=== PATIENT | male | born 1995 | race Caucasian/White ===

== ENCOUNTER 2016-06-10 20:53 | Emergency (ER) | payer OTHER ==
--- NOTE | 2016-06-10 21:31 | ED CLINICAL REPORT ---
Clinical Report - Physicians/Mid Levels [facility] [address] [place] [address] 06/10/2016 20:55 Patient: CLARKE GRAYSON Time Seen: 21:00. Arrived- By private vehicle. Historian- patient. HISTORY OF PRESENT ILLNESS Chief Complaint: EYE PAIN and FOREIGN BODY. This started yesterday, involves the right eye, is characterized as moderate in severity and has been constant and is still present. The patient sustained injury. This occurred at home. He has metallic foreign material in the eye from grinding. Eye pain, discomfort, redness and irritation. REVIEW OF SYSTEMS No fever, sore throat or cough. PAST HISTORY No history of prior eye injury, diabetes mellitus or glaucoma. He does not wear contact lenses. Mental illness. Tetanus immunization status is up-to-date. Surgeries: No history of previous surgery. SOCIAL HISTORY Smoker- current status unknown. Occasional alcohol use. History of drug use quit marijuana 2 months ago. ADDITIONAL NOTES The nursing notes have been reviewed. PHYSICAL EXAM Vital Signs: 06/10/2016 21:01 BP: 137/71. HR: 102. RR: 16. O2 saturation: 98%. Temp: 98.5 F. Pain level now: 5/10. Appearance: Alert. Oriented X3. Patient in moderate distress. HEENT: Nose normal. Head appears normal to external inspection. Eyes: Visual acuity noted- see nurse's notes. Right eyelid everted for examination. Right cornea examined with fluorescein stain. Eyelids appear normal to inspection. Pupils equal, round and reactive to light. Accommodation normal. EOMs intact. Periorbital areas appear normal to inspection. Right eye examined with slit lamp. Anterior chambers clear. Anterior chambers of normal depth. Neg Cyndie's sign. Rt Eye: Injected conjunctiva. A single metallic corneal foreign body is present medially. Single small circular shaped area of fluorescein dye uptake on the cornea medially. Lt Eye: Left eye exam normal. Neck: Neck supple. Normal inspection. CVS: Normal heart rate and rhythm. Heart sounds normal. Respiratory: No respiratory distress. Breath sounds normal. Neuro: Oriented X 3. Mood/affect normal. No motor deficit. PROGRESS AND PROCEDURES Removal of Eye Foreign Body: After topical anesthesia with 3 drops of Proparacaine, a single foreign body was successfully removed from the right cornea using the slit lamp (with magnification) and magnification lenses, a moistened sterile cotton swab and a sterile rotating selwyn and lid eversion, fluorescein and a Wood's lamp. There were no complications encountered. The patient was cooperative. Course of Care: Alcaine gtt right eye. Punctate fb removed without difficulty. No evident residual rust ring. No deep globe penetration - superficial corneal involvement only. Patient/family counseled. Old ED records reviewed. Disposition: Discharged. Condition: stable and improved. CLINICAL IMPRESSION Removed corneal foreign body right eye. No rust ring. INSTRUCTIONS Rest. Do not work for two days. Drink plenty of fluids. Do not smoke. Seek medical help to quit smoking. Warnings: Further evaluation is necessary. It is very important to follow up with a physician. CONTROLLED SUBSTANCE WARNINGS. GENERAL WARNINGS: Return or contact your physician immediately if your condition worsens or changes unexpectedly, if not improving as expected, or if other problems arise. Prescription Medications: Hydrocodone/APAP 5mg / 325mg: take 1-2 orally every 8 hours as needed for pain. Dispense ten (10). No refill. Sulfacetamide ophthalmic solution 10% : instill 2 drops into the affected eye every 2 hours while awake for 3 days. Dispense ten (10) mL. No refill. OTC Medications: Acetaminophen (available over the counter): take according to label instructions. Motrin (available over the counter): take according to label instructions. Follow-up with: Marcus Sewell MD, Ophthalmology, , [facility], [address] [place] [address]; Comfort Oh MD, Ophthalmology, [facility], [address] [place] [address] - [address] [place] [address] Follow up Sunday if not better. Follow-up with: Lj Pederson MD, [facility], , [address] [facility] [id number] [phone] Follow up in two days if not better. (Electronically signed by Sravan Watson DO 06/11/2016 2:23)
--- NOTE | 2016-06-10 21:31 | ED ORDER SUMMARY ---
..... Patient: CLARKE GRAYSON OrderSheet [facility] VisitID: [id number] [address] [place] [address] 20y, M Registration Date/Time: 06/10/2016 ORDER SHEET Weight: 58.9 kg (stated) Allergies: No Known Drug Allergy GENERAL ORDERS: MEDICATION ORDERS: Proparacaine Eye Drops (Solution 0.5 %) 2 drops (place at bedside) (21:11 06/10/2016 JQuivey R.N. per protocol) (21:12 JQuivey R.N.) Fluorescein Eye Strips 1 strips (place at bedside) (21:12 06/10/2016 JQuivey R.N. per protocol) (21:13 JQuivey R.N.) IV FLUIDS: ORDER SHEET NOTES: [Electronically signed by Slim Helton R.N. (21:40 06/10/2016)] [Electronically signed by Sravan Watson DO (02:23 06/11/2016)] [Electronically locked/signed by Slim Helton R.N. (21:40 06/10/2016)]
--- NOTE | 2016-06-10 21:31 | ED ORDER SUMMARY ---
..... Patient: CLARKE GRAYSON OrderSheet [facility] VisitID: [id number] [address] [place] [address] 20y, M Registration Date/Time: 06/10/2016 ORDER SHEET Weight: 58.9 kg (stated) Allergies: No Known Drug Allergy GENERAL ORDERS: MEDICATION ORDERS: Proparacaine Eye Drops (Solution 0.5 %) 2 drops (place at bedside) (21:11 06/10/2016 JQuivey R.N. per protocol) (21:12 JQuivey R.N.) Fluorescein Eye Strips 1 strips (place at bedside) (21:12 06/10/2016 JQuivey R.N. per protocol) (21:13 JQuivey R.N.) IV FLUIDS: ORDER SHEET NOTES: [Electronically signed by Slim Helton R.N. (21:40 06/10/2016)] [Electronically signed by Sarvan Watson DO (02:23 06/11/2016)] [Electronically locked/signed by Slim Helton R.N. (21:40 06/10/2016)]
--- NOTE | 2016-06-10 21:31 | ED NURSING NOTES ---
Clinical Report - Nurses [facility] [address] [place] [address] 06/10/2016 20:55 Patient: CLARKE GRAYSON TRIAGE Triage time 21:01. Acuity: LEVEL 4. Chief Complaint: REDNESS, PAIN and FOREIGN BODY TO RIGHT EYE. 21:04. Alert. SEPSIS SCREEN: Sepsis Screen. Negative (no infection suspected/documented). VISUAL ACUITY: Visual acuity performed without corrective lenses: left eye 20/25; right eye 20/40 minus one letter; both eyes 20/25 minus two letters. --21:05 Slim Helton R.N. 21:01 06/10/16. BP: 137/71. HR: 102. RR: 16. O2 saturation: 98%. Temp: 98.5 F (oral). Pain level now: 5/10. --21:05 Slim Helton R.N. Weight: 58.9 kg stated. Height/Length: 65 inches Per Patient. BMI: 21.6. Growth Chart Percentile: Weight: 11.6%. Height/Length: 5%. --21:02 Slim Helton R.N. Medications None. --21:03 Slim Helton R.N. Allergies No Known Drug Allergy. --21:03 Slim Helton R.N. Medication/allergy information source: the patient. --21:05 Slim Helton R.N. History Arrived by private vehicle. Historian: patient. Unaccompanied. Primary physician (Bg). This started yesterday. He sustained injury. Mechanism- grinding metal. Treatment RELIABILITY TECHNOLOGIST: None. PAST MEDICAL HX: Immunizations: up-to-date. SOCIAL HX: Current every day heavy tobacco smoker- more than 2 packs per day. Occasional alcohol use. History of occasional drug use: marijuana. (quit 2 months ago). No infectious disease exposure. ABUSE ASSESSMENT: No report of abuse. FALL RISK ASSESSMENT: Fall risk assessment completed. No fall risk identified. NUTRITIONAL RISK ASSESSMENT: The nutritional risk assessment revealed no deficiencies. FUNCTIONAL ASSESSMENT: Functional assessment: no impairments noted. LEARNING NEEDS ASSESSMENT: The learning needs assessment revealed no barriers. SKIN INTEGRITY ASSESSMENT: Skin integrity risk assessment completed. No skin integrity risk identified. --21:05 Slim Helton R.N. PROBLEMS: Mental Illness. --21:03 Slim Helton R.N. ADDITIONAL SURGERIES: no known surgeries. Interventions ID band on patient. To treatment room. --21:05 Slim Helton R.N. PHYSICAL ASSESSMENT 21:06. Ambulatory to room. GENERAL / NEURO / PSYCH: Alert. HEENT: No facial asymmetry noted. Conjunctival findings present: redness of the right conjunctiva. RESPIRATORY: Respirations not labored. SKIN: Skin is warm and dry. Normal skin turgor. --21:06 Slim Helton R.N. NURSING PROGRESS NOTES 21:06. Two patient identifiers checked. Call light placed in reach. Bed placed in lowest position. Brakes of bed on. Patient ready for evaluation- chart flagged. --21:06 Slim Helton R.N. 21:12 06/10/2016 Proparacaine Eye Drops 2 drop given. (placed at bedside). --21:12 Slim Helton R.N. 21:13 06/10/2016 FLUORESCEIN Opth soln 1 Strip given. Given in the right eye. (placed at bedside). --21:13 Slim Helton R.N. 21:37. The patient is calm and resting quietly. GENERAL / NEURO / PSYCH: Alert. Oriented X 4. RESPIRATORY: No respiratory distress. SKIN: Skin color within normal limits. Skin is warm and dry. --21:39 Slim Helton R.N. DISPOSITION / DISCHARGE Departure time: 21:40. Condition at departure: stable. No learning barriers present. Discharge instructions provided and reviewed with the patient. Reviewed medication(s) side effects, precautions, dosing and course information. Prescription(s) given to the patient. Patient verbalized understanding. Written instructions provided in Slovak. The patient was discharged home and unaccompanied at time of discharge. He left the Emergency Department ambulatory and via private vehicle. Patient driving. FALL RISK ASSESSMENT: Fall risk assessment completed. No fall risk identified. --21:40 Quivey, Slim, R.N. Locked/Released at 06/10/2016 21:40 by Slim Helton R.N.
--- NOTE | 2016-06-10 21:31 | ED NURSING NOTES ---
Clinical Report - Nurses [facility] [address] [place] [address] 06/10/2016 20:55 Patient: CLARKE GRAYSON TRIAGE Triage time 21:01. Acuity: LEVEL 4. Chief Complaint: REDNESS, PAIN and FOREIGN BODY TO RIGHT EYE. 21:04. Alert. SEPSIS SCREEN: Sepsis Screen. Negative (no infection suspected/documented). VISUAL ACUITY: Visual acuity performed without corrective lenses: left eye 20/25; right eye 20/40 minus one letter; both eyes 20/25 minus two letters. --21:05 Slim Helton R.N. 21:01 06/10/16. BP: 137/71. HR: 102. RR: 16. O2 saturation: 98%. Temp: 98.5 F (oral). Pain level now: 5/10. --21:05 Slim Helton R.N. Weight: 58.9 kg stated. Height/Length: 65 inches Per Patient. BMI: 21.6. Growth Chart Percentile: Weight: 11.6%. Height/Length: 5%. --21:02 Slim Helton R.N. Medications None. --21:03 Slim Helton R.N. Allergies No Known Drug Allergy. --21:03 Slim Helton R.N. Medication/allergy information source: the patient. --21:05 Slim Helton R.N. History Arrived by private vehicle. Historian: patient. Unaccompanied. Primary physician (Bg). This started yesterday. He sustained injury. Mechanism- grinding metal. Treatment DIRECTOR AND PROFESSOR: None. PAST MEDICAL HX: Immunizations: up-to-date. SOCIAL HX: Current every day heavy tobacco smoker- more than 2 packs per day. Occasional alcohol use. History of occasional drug use: marijuana. (quit 2 months ago). No infectious disease exposure. ABUSE ASSESSMENT: No report of abuse. FALL RISK ASSESSMENT: Fall risk assessment completed. No fall risk identified. NUTRITIONAL RISK ASSESSMENT: The nutritional risk assessment revealed no deficiencies. FUNCTIONAL ASSESSMENT: Functional assessment: no impairments noted. LEARNING NEEDS ASSESSMENT: The learning needs assessment revealed no barriers. SKIN INTEGRITY ASSESSMENT: Skin integrity risk assessment completed. No skin integrity risk identified. --21:05 Slim Helton R.N. PROBLEMS: Mental Illness. --21:03 Slim Helton R.N. ADDITIONAL SURGERIES: no known surgeries. Interventions ID band on patient. To treatment room. --21:05 Slim Helton R.N. PHYSICAL ASSESSMENT 21:06. Ambulatory to room. GENERAL / NEURO / PSYCH: Alert. HEENT: No facial asymmetry noted. Conjunctival findings present: redness of the right conjunctiva. RESPIRATORY: Respirations not labored. SKIN: Skin is warm and dry. Normal skin turgor. --21:06 Slim Helton R.N. NURSING PROGRESS NOTES 21:06. Two patient identifiers checked. Call light placed in reach. Bed placed in lowest position. Brakes of bed on. Patient ready for evaluation- chart flagged. --21:06 Slim Helton R.N. 21:12 06/10/2016 Proparacaine Eye Drops 2 drop given. (placed at bedside). --21:12 Slim Helton R.N. 21:13 06/10/2016 FLUORESCEIN Opth soln 1 Strip given. Given in the right eye. (placed at bedside). --21:13 Slim Helton R.N. 21:37. The patient is calm and resting quietly. GENERAL / NEURO / PSYCH: Alert. Oriented X 4. RESPIRATORY: No respiratory distress. SKIN: Skin color within normal limits. Skin is warm and dry. --21:39 Slim Helton R.N. DISPOSITION / DISCHARGE Departure time: 21:40. Condition at departure: stable. No learning barriers present. Discharge instructions provided and reviewed with the patient. Reviewed medication(s) side effects, precautions, dosing and course information. Prescription(s) given to the patient. Patient verbalized understanding. Written instructions provided in Uzbek. The patient was discharged home and unaccompanied at time of discharge. He left the Emergency Department ambulatory and via private vehicle. Patient driving. FALL RISK ASSESSMENT: Fall risk assessment completed. No fall risk identified. --21:40 Quivey, Slim, R.N. Locked/Released at 06/10/2016 21:40 by Slim Helton R.N.
--- NOTE | 2016-06-10 21:31 | ED CLINICAL REPORT ---
Clinical Report - Physicians/Mid Levels [facility] [address] [place] [address] 06/10/2016 20:55 Patient: CLARKE GRAYSON Time Seen: 21:00. Arrived- By private vehicle. Historian- patient. HISTORY OF PRESENT ILLNESS Chief Complaint: EYE PAIN and FOREIGN BODY. This started yesterday, involves the right eye, is characterized as moderate in severity and has been constant and is still present. The patient sustained injury. This occurred at home. He has metallic foreign material in the eye from grinding. Eye pain, discomfort, redness and irritation. REVIEW OF SYSTEMS No fever, sore throat or cough. PAST HISTORY No history of prior eye injury, diabetes mellitus or glaucoma. He does not wear contact lenses. Mental illness. Tetanus immunization status is up-to-date. Surgeries: No history of previous surgery. SOCIAL HISTORY Smoker- current status unknown. Occasional alcohol use. History of drug use quit marijuana 2 months ago. ADDITIONAL NOTES The nursing notes have been reviewed. PHYSICAL EXAM Vital Signs: 06/10/2016 21:01 BP: 137/71. HR: 102. RR: 16. O2 saturation: 98%. Temp: 98.5 F. Pain level now: 5/10. Appearance: Alert. Oriented X3. Patient in moderate distress. HEENT: Nose normal. Head appears normal to external inspection. Eyes: Visual acuity noted- see nurse's notes. Right eyelid everted for examination. Right cornea examined with fluorescein stain. Eyelids appear normal to inspection. Pupils equal, round and reactive to light. Accommodation normal. EOMs intact. Periorbital areas appear normal to inspection. Right eye examined with slit lamp. Anterior chambers clear. Anterior chambers of normal depth. Neg Cyndie's sign. Rt Eye: Injected conjunctiva. A single metallic corneal foreign body is present medially. Single small circular shaped area of fluorescein dye uptake on the cornea medially. Lt Eye: Left eye exam normal. Neck: Neck supple. Normal inspection. CVS: Normal heart rate and rhythm. Heart sounds normal. Respiratory: No respiratory distress. Breath sounds normal. Neuro: Oriented X 3. Mood/affect normal. No motor deficit. PROGRESS AND PROCEDURES Removal of Eye Foreign Body: After topical anesthesia with 3 drops of Proparacaine, a single foreign body was successfully removed from the right cornea using the slit lamp (with magnification) and magnification lenses, a moistened sterile cotton swab and a sterile rotating selwyn and lid eversion, fluorescein and a Wood's lamp. There were no complications encountered. The patient was cooperative. Course of Care: Alcaine gtt right eye. Punctate fb removed without difficulty. No evident residual rust ring. No deep globe penetration - superficial corneal involvement only. Patient/family counseled. Old ED records reviewed. Disposition: Discharged. Condition: stable and improved. CLINICAL IMPRESSION Removed corneal foreign body right eye. No rust ring. INSTRUCTIONS Rest. Do not work for two days. Drink plenty of fluids. Do not smoke. Seek medical help to quit smoking. Warnings: Further evaluation is necessary. It is very important to follow up with a physician. CONTROLLED SUBSTANCE WARNINGS. GENERAL WARNINGS: Return or contact your physician immediately if your condition worsens or changes unexpectedly, if not improving as expected, or if other problems arise. Prescription Medications: Hydrocodone/APAP 5mg / 325mg: take 1-2 orally every 8 hours as needed for pain. Dispense ten (10). No refill. Sulfacetamide ophthalmic solution 10% : instill 2 drops into the affected eye every 2 hours while awake for 3 days. Dispense ten (10) mL. No refill. OTC Medications: Acetaminophen (available over the counter): take according to label instructions. Motrin (available over the counter): take according to label instructions. Follow-up with: Marcus Sewell MD, Ophthalmology, , [facility], [address] [place] [address]; Comfort Oh MD, Ophthalmology, [facility], [address] [place] [address] - [address] [place] [address] Follow up Sunday if not better. Follow-up with: Lj Pederson MD, [facility], , [address] [facility] [id number] [phone] Follow up in two days if not better. (Electronically signed by Sravan Watson DO 06/11/2016 2:23)
--- NOTE | 2016-06-11 02:23 | ED DISCHARGE INSTRUCTIONS ---
Patient: CLARKE GRAYSON General Instructions [facility] VisitID: [id number] [place] [address] 20y, M Registration Date/Time: 06/10/2016 Removed corneal foreign body right eye. No rust ring. INSTRUCTIONS Rest. Do not work for two days. Drink plenty of fluids. Do not smoke. Seek medical help to quit smoking. Warnings: Further evaluation is necessary. It is very important to follow up with a physician. CONTROLLED SUBSTANCE WARNINGS. GENERAL WARNINGS: Return or contact your physician immediately if your condition worsens or changes unexpectedly, if not improving as expected, or if other problems arise. Prescription Medications: Hydrocodone/APAP 5mg / 325mg: take 1-2 orally every 8 hours as needed for pain. Dispense ten (10). No refill. Sulfacetamide ophthalmic solution 10% : instill 2 drops into the affected eye every 2 hours while awake for 3 days. Dispense ten (10) mL. No refill. OTC Medications: Acetaminophen (available over the counter): take according to label instructions. Motrin (available over the counter): take according to label instructions. Follow-up with: Marcus Sewell MD, Ophthalmology, , [facility], [address] [place] [address]; Comfort Oh MD, Ophthalmology, [facility], [address] [place] [address] - [address] [address] Follow up Sunday if not better. Follow-up with: Lj Pederson MD, [facility], , [facility] WSara Rodriguez [place] [address] Follow up in two days if not better. ADDITIONAL INFORMATION Particle Removed From Eye [Corneal F.B.] A particle got into your eye and stuck to the cornea (the clear part in front of the eye). Your doctor has removed this particle. The cornea is very sensitive and may still hurt for another one to two days while it heals. If a metal particle was in your eye, a "rust ring" may have formed. This may require a second visit for complete removal. Home Care: A cold pack (ice in a plastic bag, wrapped in a towel) may be applied over the eye for 20 minutes at a time to reduce pain. You may use acetaminophen (Tylenol) or ibuprofen (Motrin, Advil) to control pain, unless another pain medicine was prescribed. [NOTE: If you have chronic liver or kidney disease or ever had a stomach ulcer or GI bleeding, talk with your doctor before using these medicines.] If an EYE PATCH was applied: You may place the ice pack directly over the eye-patch. If you were given a return appointment for patch removal and re-exam, do not miss it. An eye patch should not be left in place for more than 48 hours, unless advised to do so by your doctor. DO NOT DRIVE a motor vehicle or operate machinery with the patch in place since you will have difficulty in judging distances with only one eye. If eye drops or ointment was prescribed, take as directed. Follow Up: If no patch was used but the pain continues for more than 48 hours, you should have another exam. Return to this facility or contact the referral doctor to arrange this. If your eye was patched and if you were asked to remove the patch yourself, see your doctor or return to this facility if your pain is still present after removal. If you were given a return appointment for patch removal and re-exam, do not miss this. It could be harmful if the patch remains in place longer than advised. Get Prompt Medical Attention if any of the following occur: Increasing eye pain or pain that does not improve after 24 hours Discharge from the eye Redness of the eye or swelling of the eyelids Worsening vision How To Quit Smoking Smoking is one of the hardest habits to break. About half of all those who have ever smoked have been able to quit, and most of those (about 70%) who still smoke want to quit. Here are some of the best ways to stop smoking. Keep Trying: It takes most smokers about 8 tries before they are finally able to fully quit. So, the more often you try and fail, the better your chance of quitting the next time! So, don't give up! Go Cold [place]: Most ex-smokers quit cold turkey. Trying to cut back gradually doesn't seem to work as well, perhaps because it continues the smoking habit. Also, it is possible to fool yourself by inhaling more while smoking fewer cigarettes. This results in the same amount of nicotine in your body! Get Support: Support programs can make an important difference, especially for the heavy smoker. These groups offer lectures, methods to change your behavior and peer support. Call the free national Quitline for more information. 533-YZOT-QVM (787-156-6796). Low-cost or free programs are offered by many hospitals, local chapters of the [place] [employer] (592-594-4857) and the [place] [employer] (990-970-1922). Support at home is important too. Non-smokers can help by offering praise and encouragement. If the smoker fails to quit, encourage them to try again! Ecxh-Cmr-Ukeeppp Medicines: For those who can't quit on their own, Nicotine Replacement Therapy (NRT) may make quitting much easier. Certain aids such as the nicotine patch, gum and lozenge are available without a prescription. However, it is best to use these under the guidance of your doctor. The skin patch provides a steady supply of nicotine to the body. Nicotine gum and lozenge gives temporary bursts of low levels of nicotine. Both methods take the edge off the craving for cigarettes. WARNING: If you feel symptoms of nicotine overdose, such as nausea, vomiting, dizziness, weakness, or fast heartbeat, stop using these and see your doctor. Prescription Medicines: After evaluating your smoking patterns and prior attempts at quitting, your doctor may offer a prescription medicine such as bupropion (Zyban, Wellbutrin), varenicline (Chantix, Champix), a niocotine inhaler or nasal spray. Each has its unique advantage and side effects which your doctor can review with you. Health Benefits Of Quitting: The benefits of quitting start right away and keep improving the longer you go without smokin minutes: blood pressure and pulse return to normal 8 hours: oxygen levels return to normal 2 days: ability to smell and taste begins to improve as damaged nerves start to regrow 2-3 weeks: circulation and lung function improves 1-9 months: decreased cough, congestion and shortness of breath; less tired 1 year: risk of heart attack decreases by half 5 years: risk of lung cancer decreases by half; risk of stroke becomes the same as a non-smoker For information about how to quit smoking, visit the following links: National Cancer [place] , Clearing the Air, Quit Smoking Today - an online booklet. http://www.smokefree.gov/pubs/clearing_the_air.pdf Smokefree.gov http://smokefree.gov/ QuitNet http://www.quitnet.com/ Hydrocodone Bitartrate, Acetaminophen Oral tablet What is this medicine? ACETAMINOPHEN; HYDROCODONE (a set a NHAN malika fen; brandy droe KOE done) is a pain reliever. It is used to treat mild to moderate pain. How should I use this medicine? Take this medicine by mouth. Swallow it with a full glass of water. Follow the directions on the prescription label. If the medicine upsets your stomach, take the medicine with food or milk. Do not take more than you are told to take. Talk to your director of research and development regarding the use of this medicine in children. This medicine is not approved for use in children. What side effects may I notice from receiving this medicine? Side effects that you should report to your doctor or health child care group leader as soon as possible: allergic reactions like skin rash, itching or hives, swelling of the face, lips, or tongue breathing problems confusion feeling faint or lightheaded, falls stomach pain yellowing of the eyes or skin Side effects that usually do not require medical attention (report to your doctor or health child care group leader if they continue or are bothersome): nausea, vomiting stomach upset What may interact with this medicine? alcohol antihistamines isoniazid medicines for depression, anxiety, or psychotic disturbances medicines for sleep muscle relaxants naltrexone narcotic medicines (opiates) for pain phenobarbital ritonavir tramadol What if I miss a dose? If you miss a dose, take it as soon as you can. If it is almost time for your next dose, take only that dose. Do not take double or extra doses. Where should I keep my medicine? Keep out of the reach of children. This medicine can be abused. Keep your medicine in a safe place to protect it from theft. Do not share this medicine with anyone. Selling or giving away this medicine is dangerous and against the law. Store at room temperature between 15 and 30 degrees C (59 and 86 degrees F). Protect from light. Keep container tightly closed. Throw away any unused medicine after the expiration date. Discard unused medicine and used packaging carefully. Pets and children can be harmed if they find used or lost packages. What should I tell my health care provider before I take this medicine? They need to know if you have any of these conditions: brain tumor Crohn's disease, inflammatory bowel disease, or ulcerative colitis drink more than 3 alcohol-containing drinks per day drug abuse or addiction head injury heart or circulation problems kidney disease or problems going to the bathroom liver disease lung disease, asthma, or breathing problems an unusual or allergic reaction to acetaminophen, hydrocodone, other opioid analgesics, other medicines, foods, dyes, or preservatives or trying to get breast-feeding What should I watch for while using this medicine? Tell your doctor or health child care group leader if your pain does not go away, if it gets worse, or if you have new or a different type of pain. You may develop tolerance to the medicine. Tolerance means that you will need a higher dose of the medicine for pain relief. Tolerance is normal and is expected if you take the medicine for a long time. Do not suddenly stop taking your medicine because you may develop a severe reaction. Your body becomes used to the medicine. This does NOT mean you are addicted. Addiction is a behavior related to getting and using a drug for a non-medical reason. If you have pain, you have a medical reason to take pain medicine. Your doctor will tell you how much medicine to take. If your doctor wants you to stop the medicine, the dose will be slowly lowered over time to avoid any side effects. You may get drowsy or dizzy when you first start taking the medicine or change doses. Do not drive, use machinery, or do anything that may be dangerous until you know how the medicine affects you. Stand or sit up slowly. There are different types of narcotic medicines (opiates) for pain. If you take more than one type at the same time, you may have more side effects. Give your health care provider a list of all medicines you use. Your doctor will tell you how much medicine to take. Do not take more medicine than directed. Call emergency for help if you have problems breathing. The medicine will cause constipation. Try to have a bowel movement at least every 2 to 3 days. If you do not have a bowel movement for 3 days, call your doctor or health child care group leader. Too much acetaminophen can be very dangerous. Do not take Tylenol (acetaminophen) or medicines that contain acetaminophen with this medicine. Many non-prescription medicines contain acetaminophen. Always read the labels carefully. Sulfacetamide Sodium Eye drops, solution What is this medicine? SULFACETAMIDE (sul fa SEE ta mide) is a sulfonamide antibiotic. It is used to treat eye infections. How should I use this medicine? This medicine is only for use in the eye. Do not take by mouth. Follow the directions on the prescription label. Wash hands before and after use. Tilt your head back slightly and pull your lower eyelid down with your index finger to form a pouch. Try not to touch the tip of the dropper to your eye, fingertips, or any other surface. Squeeze the prescribed number of drops into the pouch. Close the eye gently to spread the drops. Your vision may blur for a few minutes. Use your doses at regular intervals. Do not use your medicine more often than directed. Finish the full course prescribed by your doctor or health child care group leader even if you think your condition is better. Talk to your director of research and development regarding the use of this medicine in children. Special care may be needed. What side effects may I notice from receiving this medicine? Side effects that you should report to your doctor or health child care group leader as soon as possible: blurred vision that does not go away burning, blistering, peeling, stinging, or itching of the eyes or eyelids, skin or mouth eye redness, swelling, or pain Side effects that usually do not require medical attention (report to your doctor or health child care group leader if they continue or are bothersome): blurred vision for a few moments after application What may interact with this medicine? eye products that contain silver What if I miss a dose? If you miss a dose, use it as soon as you can. If it is almost time for your next dose, use only that dose. Do not use double or extra doses. Where should I keep my medicine? Keep out of the reach of children. Store between 2 and 30 degrees C (36 and 86 degrees F). Do not freeze. Throw away any unused eye products after the expiration date. What should I tell my health care provider before I take this medicine? They need to know if you have any of these conditions: eye injury or eye surgery an unusual or allergic reaction to sulfacetamide, sulfa drugs, other medicines, foods, dyes, or preservatives or trying to get breast-feeding What should I watch for while using this medicine? Tell your doctor or health child care group leader if your symptoms do not get better in 2 to 3 days. A full course of treatment is usually 7 to 10 days. If you get any sign of an allergic reaction, stop using your eye product and call your doctor or health child care group leader. Wear sunglasses if this medicine makes your eyes more sensitive to light. Keep out of the sun, or wear protective clothing outdoors and use a sunscreen. Do not use sun lamps or sun tanning beds or booths. Acetaminophen Oral tablet What is this medicine? ACETAMINOPHEN (a set a NHAN malika fen) is a pain reliever. It is used to treat mild pain and fever. How should I use this medicine? Take this medicine by mouth with a glass of water. Follow the directions on the package or prescription label. Take your medicine at regular intervals. Do not take your medicine more often than directed. Talk to your director of research and development regarding the use of this medicine in children. While this drug may be prescribed for children as young as 6 years of age for selected conditions, precautions do apply. What side effects may I notice from receiving this medicine? Side effects that you should report to your doctor or health child care group leader as soon as possible: allergic reactions like skin rash, itching or hives, swelling of the face, lips, or tongue breathing problems fever or sore throat redness, blistering, peeling or loosening of the skin, including inside the mouth trouble passing urine or change in the amount of urine unusual bleeding or bruising unusually weak or tired yellowing of the eyes or skin Side effects that usually do not require medical attention (report to your doctor or health child care group leader if they continue or are bothersome): headache nausea, stomach upset What may interact with this medicine? alcohol imatinib isoniazid other medicines with acetaminophen What if I miss a dose? If you miss a dose, take it as soon as you can. If it is almost time for your next dose, take only that dose. Do not take double or extra doses. Where should I keep my medicine? Keep out of reach of children. Store at room temperature between 20 and 25 degrees C (68 and 77 degrees F). Protect from moisture and heat. Throw away any unused medicine after the expiration date. What should I tell my health care provider before I take this medicine? They need to know if you have any of these conditions: if you frequently drink alcohol containing drinks liver disease an unusual or allergic reaction to acetaminophen, other medicines, foods, dyes or preservatives or trying to get breast-feeding What should I watch for while using this medicine? Tell your doctor or health child care group leader if the pain lasts more than 10 days (5 days for children), if it gets worse, or if there is a new or different kind of pain. Also, check with your doctor if a fever lasts for more than 3 days. Do not take other medicines that contain acetaminophen with this medicine. Always read labels carefully. If you have questions, ask your doctor or pharmacist. If you take too much acetaminophen get medical help right away. Too much acetaminophen can be very dangerous and cause liver damage. Even if you do not have symptoms, it is important to get help right away. Ibuprofen Oral tablet What is this medicine? IBUPROFEN (eye BYOO proe fen) is a non-steroidal anti-inflammatory drug (NSAID). It is used for dental pain, fever, headaches or migraines, osteoarthritis, rheumatoid arthritis, or painful monthly periods. It can also relieve minor aches and pains caused by a cold, flu, or sore throat. How should I use this medicine? Take this medicine by mouth with a glass of water. Follow the directions on the prescription label. Take this medicine with food if your stomach gets upset. Try to not lie down for at least 10 minutes after you take the medicine. Take your medicine at regular intervals. Do not take your medicine more often than directed. A special MedGuide will be given to you by the pharmacist with each prescription and refill. Be sure to read this information carefully each time. Talk to your director of research and development regarding the use of this medicine in children. Special care may be needed. What side effects may I notice from receiving this medicine? Side effects that you should report to your doctor or health child care group leader as soon as possible: allergic reactions like skin rash, itching or hives, swelling of the face, lips, or tongue black or bloody stools, blood in the urine or in vomit breathing problems changes in vision chest pain general ill feeling or flu-like symptoms nausea or vomiting redness, blistering, peeling or loosening of the skin, including inside the mouth slurred speech or weakness on one side of the body stomach pain unexplained weight gain or swelling unusually weak or tired yellowing of eyes or skin Side effects that usually do not require medical attention (report to your doctor or health child care group leader if they continue or are bothersome): constipation or diarrhea dizziness gas or heartburn stomach upset What may interact with this medicine? Do not take this medicine with any of the following medications: cidofovir ketorolac methotrexate pemetrexed This medicine may also interact with the following medications: alcohol aspirin diuretics lithium other drugs for inflammation like prednisone warfarin What if I miss a dose? If you miss a dose, take it as soon as you can. If it is almost time for your next dose, take only that dose. Do not take double or extra doses. Where should I keep my medicine? Keep out of the reach of children. Store at room temperature between 15 and 30 degrees C (59 and 86 degrees F). Keep container tightly closed. Throw away any unused medicine after the expiration date. What should I tell my health care provider before I take this medicine? They need to know if you have any of these conditions: asthma cigarette smoker drink more than 3 alcohol containing drinks a day heart disease or circulation problems such as heart failure or leg edema (fluid retention) high blood pressure kidney disease liver disease stomach bleeding or ulcers an unusual or allergic reaction to ibuprofen, aspirin, other NSAIDS, other medicines, foods, dyes, or preservatives or trying to get breast-feeding What should I watch for while using this medicine? Tell your doctor or healthcare professional if your symptoms do not start to get better or if they get worse. This medicine does not prevent heart attack or stroke. In fact, this medicine may increase the chance of a heart attack or stroke. The chance may increase with longer use of this medicine and in people who have heart disease. If you take aspirin to prevent heart attack or stroke, talk with your doctor or health child care group leader. Do not take other medicines that contain aspirin, ibuprofen, or naproxen with this medicine. Side effects such as stomach upset, nausea, or ulcers may be more likely to occur. Many medicines available without a prescription should not be taken with this medicine. This medicine can cause ulcers and bleeding in the stomach and intestines at any time during treatment. Ulcers and bleeding can happen without warning symptoms and can cause . To reduce your risk, do not smoke cigarettes or drink alcohol while you are taking this medicine. You may get drowsy or dizzy. Do not drive, use machinery, or do anything that needs mental alertness until you know how this medicine affects you. Do not stand or sit up quickly, especially if you are an older patient. This reduces the risk of dizzy or fainting spells. This medicine can cause you to bleed more easily. Try to avoid damage to your teeth and gums when you brush or floss your teeth. You have been given the following additional information: Corneal Foreign Body, Removed Smoking Cessation Hydrocodone Bitartrate, Acetaminophen Oral tablet Sulfacetamide Sodium Eye drops, solution Acetaminophen Oral tablet Ibuprofen Oral tablet Rest. Do not work for two days. (Electronically signed by Sravan Watson DO 06/11/2016 2:23)
--- NOTE | 2016-06-11 02:23 | ED MED RECONCILIATION SUMMARY ---
Patient: CLARKE GRAYSON Medication Reconciliation Report [facility] VisitID: [id number] [place] [address] 20y, M Registration Date/Time: 06/10/2016 Weight: 58.9 kg Height/Length: 65 in. BMI: 21.6 ALLERGIES: No Known Drug Allergy The patient's Home Medications are listed below: NONE. The source(s) of the original Home Medication information: patient The following Medications were given to the patient in the Emergency Department: Proparacaine [Eye Drops] Eye Drops 2 drop, administered: 06/10/2016 9:12:00 PM FLUORESCEIN [EYE STRIPS] Opth soln 1 Strip, administered: 06/10/2016 9:13:00 PM The following Medications were prescribed to the patient: Acetaminophen (available over the counter): take according to label instructions. -- Sravan Watson DO Motrin (available over the counter): take according to label instructions. -- Sravan Watson DO Hydrocodone/APAP 5mg / 325mg: take 1-2 orally every 8 hours as needed for pain. Dispense ten (10). No refill. -- Sravan Watson DO Sulfacetamide ophthalmic solution 10% : instill 2 drops into the affected eye every 2 hours while awake for 3 days. Dispense ten (10) mL. No refill. -- Sravan Watson DO
--- NOTE | 2016-06-11 02:23 | ED DISCHARGE INSTRUCTIONS ---
Patient: CLARKE GRAYSON General Instructions [facility] VisitID: [id number] [place] [address] 20y, M Registration Date/Time: 06/10/2016 Removed corneal foreign body right eye. No rust ring. INSTRUCTIONS Rest. Do not work for two days. Drink plenty of fluids. Do not smoke. Seek medical help to quit smoking. Warnings: Further evaluation is necessary. It is very important to follow up with a physician. CONTROLLED SUBSTANCE WARNINGS. GENERAL WARNINGS: Return or contact your physician immediately if your condition worsens or changes unexpectedly, if not improving as expected, or if other problems arise. Prescription Medications: Hydrocodone/APAP 5mg / 325mg: take 1-2 orally every 8 hours as needed for pain. Dispense ten (10). No refill. Sulfacetamide ophthalmic solution 10% : instill 2 drops into the affected eye every 2 hours while awake for 3 days. Dispense ten (10) mL. No refill. OTC Medications: Acetaminophen (available over the counter): take according to label instructions. Motrin (available over the counter): take according to label instructions. Follow-up with: Marcus Sewell MD, Ophthalmology, , [facility], [address] [place] [address]; Comfort Oh MD, Ophthalmology, [facility], [address] [place] [address] - [address] [address] Follow up Sunday if not better. Follow-up with: Lj Pederson MD, [facility], , [facility] WSara Rodriguez [place] [address] Follow up in two days if not better. ADDITIONAL INFORMATION Particle Removed From Eye [Corneal F.B.] A particle got into your eye and stuck to the cornea (the clear part in front of the eye). Your doctor has removed this particle. The cornea is very sensitive and may still hurt for another one to two days while it heals. If a metal particle was in your eye, a "rust ring" may have formed. This may require a second visit for complete removal. Home Care: A cold pack (ice in a plastic bag, wrapped in a towel) may be applied over the eye for 20 minutes at a time to reduce pain. You may use acetaminophen (Tylenol) or ibuprofen (Motrin, Advil) to control pain, unless another pain medicine was prescribed. [NOTE: If you have chronic liver or kidney disease or ever had a stomach ulcer or GI bleeding, talk with your doctor before using these medicines.] If an EYE PATCH was applied: You may place the ice pack directly over the eye-patch. If you were given a return appointment for patch removal and re-exam, do not miss it. An eye patch should not be left in place for more than 48 hours, unless advised to do so by your doctor. DO NOT DRIVE a motor vehicle or operate machinery with the patch in place since you will have difficulty in judging distances with only one eye. If eye drops or ointment was prescribed, take as directed. Follow Up: If no patch was used but the pain continues for more than 48 hours, you should have another exam. Return to this facility or contact the referral doctor to arrange this. If your eye was patched and if you were asked to remove the patch yourself, see your doctor or return to this facility if your pain is still present after removal. If you were given a return appointment for patch removal and re-exam, do not miss this. It could be harmful if the patch remains in place longer than advised. Get Prompt Medical Attention if any of the following occur: Increasing eye pain or pain that does not improve after 24 hours Discharge from the eye Redness of the eye or swelling of the eyelids Worsening vision How To Quit Smoking Smoking is one of the hardest habits to break. About half of all those who have ever smoked have been able to quit, and most of those (about 70%) who still smoke want to quit. Here are some of the best ways to stop smoking. Keep Trying: It takes most smokers about 8 tries before they are finally able to fully quit. So, the more often you try and fail, the better your chance of quitting the next time! So, don't give up! Go Cold [place]: Most ex-smokers quit cold turkey. Trying to cut back gradually doesn't seem to work as well, perhaps because it continues the smoking habit. Also, it is possible to fool yourself by inhaling more while smoking fewer cigarettes. This results in the same amount of nicotine in your body! Get Support: Support programs can make an important difference, especially for the heavy smoker. These groups offer lectures, methods to change your behavior and peer support. Call the free national Quitline for more information. 257-KUZF-EWD (651-026-7512). Low-cost or free programs are offered by many hospitals, local chapters of the [place] [employer] (611-959-0915) and the [place] [employer] (884-371-7489). Support at home is important too. Non-smokers can help by offering praise and encouragement. If the smoker fails to quit, encourage them to try again! Slew-Inm-Qztxbrx Medicines: For those who can't quit on their own, Nicotine Replacement Therapy (NRT) may make quitting much easier. Certain aids such as the nicotine patch, gum and lozenge are available without a prescription. However, it is best to use these under the guidance of your doctor. The skin patch provides a steady supply of nicotine to the body. Nicotine gum and lozenge gives temporary bursts of low levels of nicotine. Both methods take the edge off the craving for cigarettes. WARNING: If you feel symptoms of nicotine overdose, such as nausea, vomiting, dizziness, weakness, or fast heartbeat, stop using these and see your doctor. Prescription Medicines: After evaluating your smoking patterns and prior attempts at quitting, your doctor may offer a prescription medicine such as bupropion (Zyban, Wellbutrin), varenicline (Chantix, Champix), a niocotine inhaler or nasal spray. Each has its unique advantage and side effects which your doctor can review with you. Health Benefits Of Quitting: The benefits of quitting start right away and keep improving the longer you go without smokin minutes: blood pressure and pulse return to normal 8 hours: oxygen levels return to normal 2 days: ability to smell and taste begins to improve as damaged nerves start to regrow 2-3 weeks: circulation and lung function improves 1-9 months: decreased cough, congestion and shortness of breath; less tired 1 year: risk of heart attack decreases by half 5 years: risk of lung cancer decreases by half; risk of stroke becomes the same as a non-smoker For information about how to quit smoking, visit the following links: National Cancer [place] , Clearing the Air, Quit Smoking Today - an online booklet. http://www.smokefree.gov/pubs/clearing_the_air.pdf Smokefree.gov http://smokefree.gov/ QuitNet http://www.quitnet.com/ Hydrocodone Bitartrate, Acetaminophen Oral tablet What is this medicine? ACETAMINOPHEN; HYDROCODONE (a set a HNAN malika fen; brandy droe KOE done) is a pain reliever. It is used to treat mild to moderate pain. How should I use this medicine? Take this medicine by mouth. Swallow it with a full glass of water. Follow the directions on the prescription label. If the medicine upsets your stomach, take the medicine with food or milk. Do not take more than you are told to take. Talk to your carpenter foreman regarding the use of this medicine in children. This medicine is not approved for use in children. What side effects may I notice from receiving this medicine? Side effects that you should report to your doctor or health infant childcare provider as soon as possible: allergic reactions like skin rash, itching or hives, swelling of the face, lips, or tongue breathing problems confusion feeling faint or lightheaded, falls stomach pain yellowing of the eyes or skin Side effects that usually do not require medical attention (report to your doctor or health infant childcare provider if they continue or are bothersome): nausea, vomiting stomach upset What may interact with this medicine? alcohol antihistamines isoniazid medicines for depression, anxiety, or psychotic disturbances medicines for sleep muscle relaxants naltrexone narcotic medicines (opiates) for pain phenobarbital ritonavir tramadol What if I miss a dose? If you miss a dose, take it as soon as you can. If it is almost time for your next dose, take only that dose. Do not take double or extra doses. Where should I keep my medicine? Keep out of the reach of children. This medicine can be abused. Keep your medicine in a safe place to protect it from theft. Do not share this medicine with anyone. Selling or giving away this medicine is dangerous and against the law. Store at room temperature between 15 and 30 degrees C (59 and 86 degrees F). Protect from light. Keep container tightly closed. Throw away any unused medicine after the expiration date. Discard unused medicine and used packaging carefully. Pets and children can be harmed if they find used or lost packages. What should I tell my health care provider before I take this medicine? They need to know if you have any of these conditions: brain tumor Crohn's disease, inflammatory bowel disease, or ulcerative colitis drink more than 3 alcohol-containing drinks per day drug abuse or addiction head injury heart or circulation problems kidney disease or problems going to the bathroom liver disease lung disease, asthma, or breathing problems an unusual or allergic reaction to acetaminophen, hydrocodone, other opioid analgesics, other medicines, foods, dyes, or preservatives or trying to get breast-feeding What should I watch for while using this medicine? Tell your doctor or health infant childcare provider if your pain does not go away, if it gets worse, or if you have new or a different type of pain. You may develop tolerance to the medicine. Tolerance means that you will need a higher dose of the medicine for pain relief. Tolerance is normal and is expected if you take the medicine for a long time. Do not suddenly stop taking your medicine because you may develop a severe reaction. Your body becomes used to the medicine. This does NOT mean you are addicted. Addiction is a behavior related to getting and using a drug for a non-medical reason. If you have pain, you have a medical reason to take pain medicine. Your doctor will tell you how much medicine to take. If your doctor wants you to stop the medicine, the dose will be slowly lowered over time to avoid any side effects. You may get drowsy or dizzy when you first start taking the medicine or change doses. Do not drive, use machinery, or do anything that may be dangerous until you know how the medicine affects you. Stand or sit up slowly. There are different types of narcotic medicines (opiates) for pain. If you take more than one type at the same time, you may have more side effects. Give your health care provider a list of all medicines you use. Your doctor will tell you how much medicine to take. Do not take more medicine than directed. Call emergency for help if you have problems breathing. The medicine will cause constipation. Try to have a bowel movement at least every 2 to 3 days. If you do not have a bowel movement for 3 days, call your doctor or health infant childcare provider. Too much acetaminophen can be very dangerous. Do not take Tylenol (acetaminophen) or medicines that contain acetaminophen with this medicine. Many non-prescription medicines contain acetaminophen. Always read the labels carefully. Sulfacetamide Sodium Eye drops, solution What is this medicine? SULFACETAMIDE (sul fa SEE ta mide) is a sulfonamide antibiotic. It is used to treat eye infections. How should I use this medicine? This medicine is only for use in the eye. Do not take by mouth. Follow the directions on the prescription label. Wash hands before and after use. Tilt your head back slightly and pull your lower eyelid down with your index finger to form a pouch. Try not to touch the tip of the dropper to your eye, fingertips, or any other surface. Squeeze the prescribed number of drops into the pouch. Close the eye gently to spread the drops. Your vision may blur for a few minutes. Use your doses at regular intervals. Do not use your medicine more often than directed. Finish the full course prescribed by your doctor or health infant childcare provider even if you think your condition is better. Talk to your carpenter foreman regarding the use of this medicine in children. Special care may be needed. What side effects may I notice from receiving this medicine? Side effects that you should report to your doctor or health infant childcare provider as soon as possible: blurred vision that does not go away burning, blistering, peeling, stinging, or itching of the eyes or eyelids, skin or mouth eye redness, swelling, or pain Side effects that usually do not require medical attention (report to your doctor or health infant childcare provider if they continue or are bothersome): blurred vision for a few moments after application What may interact with this medicine? eye products that contain silver What if I miss a dose? If you miss a dose, use it as soon as you can. If it is almost time for your next dose, use only that dose. Do not use double or extra doses. Where should I keep my medicine? Keep out of the reach of children. Store between 2 and 30 degrees C (36 and 86 degrees F). Do not freeze. Throw away any unused eye products after the expiration date. What should I tell my health care provider before I take this medicine? They need to know if you have any of these conditions: eye injury or eye surgery an unusual or allergic reaction to sulfacetamide, sulfa drugs, other medicines, foods, dyes, or preservatives or trying to get breast-feeding What should I watch for while using this medicine? Tell your doctor or health infant childcare provider if your symptoms do not get better in 2 to 3 days. A full course of treatment is usually 7 to 10 days. If you get any sign of an allergic reaction, stop using your eye product and call your doctor or health infant childcare provider. Wear sunglasses if this medicine makes your eyes more sensitive to light. Keep out of the sun, or wear protective clothing outdoors and use a sunscreen. Do not use sun lamps or sun tanning beds or booths. Acetaminophen Oral tablet What is this medicine? ACETAMINOPHEN (a set a NHAN malika fen) is a pain reliever. It is used to treat mild pain and fever. How should I use this medicine? Take this medicine by mouth with a glass of water. Follow the directions on the package or prescription label. Take your medicine at regular intervals. Do not take your medicine more often than directed. Talk to your carpenter foreman regarding the use of this medicine in children. While this drug may be prescribed for children as young as 6 years of age for selected conditions, precautions do apply. What side effects may I notice from receiving this medicine? Side effects that you should report to your doctor or health infant childcare provider as soon as possible: allergic reactions like skin rash, itching or hives, swelling of the face, lips, or tongue breathing problems fever or sore throat redness, blistering, peeling or loosening of the skin, including inside the mouth trouble passing urine or change in the amount of urine unusual bleeding or bruising unusually weak or tired yellowing of the eyes or skin Side effects that usually do not require medical attention (report to your doctor or health infant childcare provider if they continue or are bothersome): headache nausea, stomach upset What may interact with this medicine? alcohol imatinib isoniazid other medicines with acetaminophen What if I miss a dose? If you miss a dose, take it as soon as you can. If it is almost time for your next dose, take only that dose. Do not take double or extra doses. Where should I keep my medicine? Keep out of reach of children. Store at room temperature between 20 and 25 degrees C (68 and 77 degrees F). Protect from moisture and heat. Throw away any unused medicine after the expiration date. What should I tell my health care provider before I take this medicine? They need to know if you have any of these conditions: if you frequently drink alcohol containing drinks liver disease an unusual or allergic reaction to acetaminophen, other medicines, foods, dyes or preservatives or trying to get breast-feeding What should I watch for while using this medicine? Tell your doctor or health infant childcare provider if the pain lasts more than 10 days (5 days for children), if it gets worse, or if there is a new or different kind of pain. Also, check with your doctor if a fever lasts for more than 3 days. Do not take other medicines that contain acetaminophen with this medicine. Always read labels carefully. If you have questions, ask your doctor or pharmacist. If you take too much acetaminophen get medical help right away. Too much acetaminophen can be very dangerous and cause liver damage. Even if you do not have symptoms, it is important to get help right away. Ibuprofen Oral tablet What is this medicine? IBUPROFEN (eye BYOO proe fen) is a non-steroidal anti-inflammatory drug (NSAID). It is used for dental pain, fever, headaches or migraines, osteoarthritis, rheumatoid arthritis, or painful monthly periods. It can also relieve minor aches and pains caused by a cold, flu, or sore throat. How should I use this medicine? Take this medicine by mouth with a glass of water. Follow the directions on the prescription label. Take this medicine with food if your stomach gets upset. Try to not lie down for at least 10 minutes after you take the medicine. Take your medicine at regular intervals. Do not take your medicine more often than directed. A special MedGuide will be given to you by the pharmacist with each prescription and refill. Be sure to read this information carefully each time. Talk to your carpenter foreman regarding the use of this medicine in children. Special care may be needed. What side effects may I notice from receiving this medicine? Side effects that you should report to your doctor or health infant childcare provider as soon as possible: allergic reactions like skin rash, itching or hives, swelling of the face, lips, or tongue black or bloody stools, blood in the urine or in vomit breathing problems changes in vision chest pain general ill feeling or flu-like symptoms nausea or vomiting redness, blistering, peeling or loosening of the skin, including inside the mouth slurred speech or weakness on one side of the body stomach pain unexplained weight gain or swelling unusually weak or tired yellowing of eyes or skin Side effects that usually do not require medical attention (report to your doctor or health infant childcare provider if they continue or are bothersome): constipation or diarrhea dizziness gas or heartburn stomach upset What may interact with this medicine? Do not take this medicine with any of the following medications: cidofovir ketorolac methotrexate pemetrexed This medicine may also interact with the following medications: alcohol aspirin diuretics lithium other drugs for inflammation like prednisone warfarin What if I miss a dose? If you miss a dose, take it as soon as you can. If it is almost time for your next dose, take only that dose. Do not take double or extra doses. Where should I keep my medicine? Keep out of the reach of children. Store at room temperature between 15 and 30 degrees C (59 and 86 degrees F). Keep container tightly closed. Throw away any unused medicine after the expiration date. What should I tell my health care provider before I take this medicine? They need to know if you have any of these conditions: asthma cigarette smoker drink more than 3 alcohol containing drinks a day heart disease or circulation problems such as heart failure or leg edema (fluid retention) high blood pressure kidney disease liver disease stomach bleeding or ulcers an unusual or allergic reaction to ibuprofen, aspirin, other NSAIDS, other medicines, foods, dyes, or preservatives or trying to get breast-feeding What should I watch for while using this medicine? Tell your doctor or healthcare professional if your symptoms do not start to get better or if they get worse. This medicine does not prevent heart attack or stroke. In fact, this medicine may increase the chance of a heart attack or stroke. The chance may increase with longer use of this medicine and in people who have heart disease. If you take aspirin to prevent heart attack or stroke, talk with your doctor or health infant childcare provider. Do not take other medicines that contain aspirin, ibuprofen, or naproxen with this medicine. Side effects such as stomach upset, nausea, or ulcers may be more likely to occur. Many medicines available without a prescription should not be taken with this medicine. This medicine can cause ulcers and bleeding in the stomach and intestines at any time during treatment. Ulcers and bleeding can happen without warning symptoms and can cause . To reduce your risk, do not smoke cigarettes or drink alcohol while you are taking this medicine. You may get drowsy or dizzy. Do not drive, use machinery, or do anything that needs mental alertness until you know how this medicine affects you. Do not stand or sit up quickly, especially if you are an older patient. This reduces the risk of dizzy or fainting spells. This medicine can cause you to bleed more easily. Try to avoid damage to your teeth and gums when you brush or floss your teeth. You have been given the following additional information: Corneal Foreign Body, Removed Smoking Cessation Hydrocodone Bitartrate, Acetaminophen Oral tablet Sulfacetamide Sodium Eye drops, solution Acetaminophen Oral tablet Ibuprofen Oral tablet Rest. Do not work for two days. (Electronically signed by Sravan Watson DO 06/11/2016 2:23)
--- NOTE | 2016-06-11 02:23 | ED MAR SUMMARY ---
..... Medication Administration Record [facility] [address] [place] [address] Patient: CLARKE GRAYSON Visit ID: [id number] 20y, M Weight: 58.9 kg Height/Length: 65 in BMI: 21.6 ALLERGIES: No Known Drug Allergy Given 21:12 06/10/2016 Slim Helton, R.N. Medication Administered: PROPARACAINE [EYE DROPS], Dose: 2 drop Eye Drops. Medication Ordered: Proparacaine Eye Drops (Solution 0.5 %) 2 drops (place at bedside). Given 21:13 06/10/2016 Slim Helton, R.N. Medication Administered: FLUORESCEIN [EYE STRIPS], Dose: 1 Strip Opth soln. Medication Ordered: Fluorescein Eye Strips 1 strips (place at bedside).
--- NOTE | 2016-06-11 02:23 | ED MED RECONCILIATION SUMMARY ---
Patient: CLARKE GRAYSON Medication Reconciliation Report [facility] VisitID: [id number] [place] [address] 20y, M Registration Date/Time: 06/10/2016 Weight: 58.9 kg Height/Length: 65 in. BMI: 21.6 ALLERGIES: No Known Drug Allergy The patient's Home Medications are listed below: NONE. The source(s) of the original Home Medication information: patient The following Medications were given to the patient in the Emergency Department: Proparacaine [Eye Drops] Eye Drops 2 drop, administered: 06/10/2016 9:12:00 PM FLUORESCEIN [EYE STRIPS] Opth soln 1 Strip, administered: 06/10/2016 9:13:00 PM The following Medications were prescribed to the patient: Acetaminophen (available over the counter): take according to label instructions. -- Sravan Watson DO Motrin (available over the counter): take according to label instructions. -- Sravan Watson DO Hydrocodone/APAP 5mg / 325mg: take 1-2 orally every 8 hours as needed for pain. Dispense ten (10). No refill. -- Sravan Watson DO Sulfacetamide ophthalmic solution 10% : instill 2 drops into the affected eye every 2 hours while awake for 3 days. Dispense ten (10) mL. No refill. -- Sravan Watson DO
--- NOTE | 2016-06-11 02:23 | ED MAR SUMMARY ---
..... Medication Administration Record [facility] [address] [place] [address] Patient: CLARKE GRAYSON Visit ID: [id number] 20y, M Weight: 58.9 kg Height/Length: 65 in BMI: 21.6 ALLERGIES: No Known Drug Allergy Given 21:12 06/10/2016 Slim Helton, R.N. Medication Administered: PROPARACAINE [EYE DROPS], Dose: 2 drop Eye Drops. Medication Ordered: Proparacaine Eye Drops (Solution 0.5 %) 2 drops (place at bedside). Given 21:13 06/10/2016 Slim Helton, R.N. Medication Administered: FLUORESCEIN [EYE STRIPS], Dose: 1 Strip Opth soln. Medication Ordered: Fluorescein Eye Strips 1 strips (place at bedside).
== END 2016-06-10 21:40 | disposition home or self-care (01) ==
LOC: ED SRH 20:53
DX: T15.01XA Foreign body in cornea, right eye, initial encounter (principal); X58.XXXA Exposure to other specified factors, initial encounter; Y92.009 Unspecified place in unspecified non-institutional (private) residence as the place of occurrence of the external cause; Y93.89 Activity, other specified; Y99.9 Unspecified external cause status; F17.210 Nicotine dependence, cigarettes, uncomplicated